=== PATIENT | female | born 2000 | race Caucasian/White ===

== ENCOUNTER 2023-04-13 21:21 | Emergency (ER) | payer OTHER, MEDICAID ==
[~2023-04-13] VITALS: Ht 170.2 cm; Wt 103.8 kg
[2023-04-13 21:48] VITALS: BP 125/69; PULSE 96; RESP 16; TEMP 99.3; O2SAT 98
[2023-04-13] MEDS ORDERED: phenylephrine/cocoa butter (Preparation H) suppository RC PRN (23:40)
[2023-04-13] MEDS ORDERED: PHEN1SUP96 PR (23:42)
[2023-04-13] MEDS ORDERED: OXYC-145 PO (23:42)
[2023-04-13] MEDS ORDERED: oxyCODONE/APAP 5-325mg tablet PO ONE (23:45)
[2023-04-13] MEDS ORDERED: hydrocortisone acetate 25mg rectal suppository RC ONE ×2 (23:50)
== END 2023-04-14 00:11 | disposition home or self-care (01) ==
LOC: ER 21:23
DX: K62.89 Other specified diseases of anus and rectum (principal); K64.1 Second degree hemorrhoids; Z79.899 Other long term (current) drug therapy
CPT/HCPCS: 99283

== ENCOUNTER 2023-04-30 23:01 | Emergency (ER) | payer OTHER, MEDICAID ==
[~2023-04-30] VITALS: Ht 170.2 cm; Wt 108.2 kg
[~2023-04-30 23:01] MED LIST: OXYC-145 PO; PHEN1SUP96 PR
[2023-05-01] LABS: BILIRUBIN,URINE NEGATIVE (Neg); CLARITY,URINE SLIGHTLY CLOUDY (Clear); COLOR,URINE YELLOW (Yellow); GLUCOSE, URINE 100 mg/dl (Neg); KETONES,URINE NEGATIVE (Neg); LEUKOCYTE ESTERASE ,URINE NEGATIVE (Neg); NITRITES, URINE NEGATIVE (Neg); OCCULT BLOOD,URINE NEGATIVE (Neg); PROTEIN,URINE NEGATIVE (Neg); UROBILINOGEN,URINE 0.2 E.U/dL (0.2-1.0)
[2023-05-01 00:01] LABS: BASOPHILS # (AUTO) 0.1 X10'3 (0-0.2); BASOPHILS % (AUTO) 1.9 % (0-1); EOSINOPHILS # (AUTO) 0.1 X10'3 (0-0.9); EOSINOPHILS % (AUTO) 0.7 % (0-6); HEMATOCRIT 41.8 % (35.0-45.0); HEMOGLOBIN 14.5 g/dl (12.0-16.0); LYMPHOCYTES # (AUTO) 1.8 X10'3 (1.1-4.8); LYMPHOCYTES % (AUTO) 23.3 % (21-51); MEAN CORPUSCULAR HEMOGLOBIN 32.2 PG (27.0-31.0); MEAN CORPUSCULAR HGB CONC 34.6 g/dL (33.0-36.5); MEAN CORPUSCULAR VOLUME 93.2 FL (78-98); MEAN PLATELET VOLUME 7.1 FL (7.4-10.4); MONOCYTES # (AUTO) 0.4 X10'3 (0-0.9); MONOCYTES % (AUTO) 4.8 % (2-12); NEUTROPHILS # (AUTO) 5.5 X10'3 (1.8-7.7); NEUTROPHILS % (AUTO) 69.3 % (42-75); PLATELET COUNT 278 X10'3 (140-440); RED BLOOD COUNT 4.49 X10'6 (4.20-5.60); RED CELL DISTRIBUTION WIDTH 12.9 % (11.5-14.5); WHITE BLOOD COUNT 7.9 X10'3 (4.5-11.0)
[2023-05-01 00:01] LABS: URINE HCG NEGATIVE (NEG)
[2023-05-01 00:11] LABS: ALANINE AMINOTRANSFERASE 45 U/L (12-78); ALBUMIN 3.7 G/DL (3.4-5.0); ALBUMIN/GLOBULIN RATIO 0.9 (1.1-1.5); ALKALINE PHOSPHATASE 84 IU/L (20-180); ANION GAP 9 (8-16); ASPARTATE AMINO TRANSFERASE 26 U/L (10-37); BILIRUBIN,TOTAL 0.2 MG/DL (0.1-1.0); BLOOD UREA NITROGEN 9 MG/DL (7-18); BUN/CREATININE RATIO 10.3 (10.0-20.0); CALCIUM 8.9 MG/DL (8.5-10.1); CHLORIDE 103 MMOL/L (99-107); CREATININE 0.87 MG/DL (0.40-0.90); GLUCOSE 205 MG/DL (70-104); LIPASE 38 U/L (16-77); POTASSIUM 4.1 MMOL/L (3.5-5.1); SODIUM 139 MMOL/L (135-145); TOTAL CARBON DIOXIDE 26.7 MMOL/L (24-32); eCRCL 100 ML/MIN; eGFR 83 ML/MIN
[2023-05-01 00:12] LABS: UA COLLECTION TYPE CLN CATCH MIDSTREAM
[2023-05-01 00:13] LABS: BACTERIA,URINE 2+ /HPF (Neg); RBC,URINE 0-2 /HPF (0-2); WBC,URINE 0-4 /HPF (0-4)
[2023-05-01 00:14] LABS: AMORPHOUS PHOSPHATES 1+; MUCUS STRANDS FEW /LPF (Neg); RENAL CELLS, URINE FEW /HPF; SQUAMOUS EPITHELIAL CELL,UR FEW /LPF (FEW)
[2023-05-01 04:40] VITALS: BP 128/63; PULSE 95; RESP 18; TEMP 98.2; O2SAT 98
== END 2023-05-01 04:42 | disposition home or self-care (01) ==
LOC: ER 23:02
DX: R10.32 Left lower quadrant pain (principal)
CPT/HCPCS: 36415; 80053; 81001; 81003; 81025; 83690; 85025; 99283

== ENCOUNTER 2023-05-11 14:42 | Emergency (ER) | payer OTHER, MEDICAID ==
[~2023-05-11] VITALS: Ht 170.2 cm; Wt 105.9 kg
[2023-05-11 18:05] LABS: BILIRUBIN,URINE NEGATIVE (Neg); CLARITY,URINE CLOUDY (Clear); COLOR,URINE YELLOW (Yellow); GLUCOSE, URINE NEGATIVE (Neg); KETONES,URINE NEGATIVE (Neg); LEUKOCYTE ESTERASE ,URINE NEGATIVE (Neg); NITRITES, URINE NEGATIVE (Neg); OCCULT BLOOD,URINE MODERATE (Neg); PROTEIN,URINE NEGATIVE (Neg); UA COLLECTION TYPE NON-SPECIFIED; UROBILINOGEN,URINE 0.2 E.U/dL (0.2-1.0)
[2023-05-11 18:06] LABS: URINE HCG NEGATIVE (NEG)
[2023-05-11 18:08] LABS: MEAN PLATELET VOLUME 6.9 FL (7.4-10.4)
[2023-05-11 18:09] LABS: BASOPHILS % (AUTO) 0.3 % (0-1); EOSINOPHILS % (AUTO) 0.4 % (0-6); HEMATOCRIT 45.1 % (35.0-45.0); HEMOGLOBIN 15.5 g/dl (12.0-16.0); LYMPHOCYTES # (AUTO) 1.7 X10'3 (1.1-4.8); LYMPHOCYTES % (AUTO) 21.4 % (21-51); MEAN CORPUSCULAR HEMOGLOBIN 32.3 PG (27.0-31.0); MEAN CORPUSCULAR HGB CONC 34.5 g/dL (33.0-36.5); MEAN CORPUSCULAR VOLUME 93.7 FL (78-98); MONOCYTES # (AUTO) 0.6 X10'3 (0-0.9); MONOCYTES % (AUTO) 7.1 % (2-12); NEUTROPHILS # (AUTO) 5.8 X10'3 (1.8-7.7); NEUTROPHILS % (AUTO) 70.8 % (42-75); PLATELET COUNT 307 X10'3 (140-440); RED BLOOD COUNT 4.81 X10'6 (4.20-5.60); RED CELL DISTRIBUTION WIDTH 12.9 % (11.5-14.5); WHITE BLOOD COUNT 8.1 X10'3 (4.5-11.0)
[2023-05-11 18:10] LABS: BACTERIA,URINE 2+ /HPF (Neg); MUCUS STRANDS FEW /LPF (Neg); SQUAMOUS EPITHELIAL CELL,UR FEW /LPF (FEW); WBC,URINE 0-4 /HPF (0-4)
[2023-05-11] MEDS ORDERED: iohexol 300mg/ml 100ml inj. ONE (19:00)
[2023-05-11 19:03] LABS: ALANINE AMINOTRANSFERASE 40 U/L (12-78); ALBUMIN 4.2 G/DL (3.4-5.0); ALBUMIN/GLOBULIN RATIO 1.1 (1.1-1.5); ALKALINE PHOSPHATASE 90 IU/L (20-180); ANION GAP 7 (8-16); ASPARTATE AMINO TRANSFERASE 23 U/L (10-37); BILIRUBIN,TOTAL 0.4 MG/DL (0.1-1.0); BLOOD UREA NITROGEN 12 MG/DL (7-18); CALCIUM 9.5 MG/DL (8.5-10.1); CHLORIDE 104 MMOL/L (99-107); CREATININE 0.86 MG/DL (0.40-0.90); GLUCOSE 88 MG/DL (70-104); POTASSIUM 4.2 MMOL/L (3.5-5.1); SODIUM 138 MMOL/L (135-145); TOTAL CARBON DIOXIDE 26.7 MMOL/L (24-32); eCRCL 101 ML/MIN; eGFR 84 ML/MIN
[2023-05-11] MEDS ORDERED: NAPR-56 PO (20:37)
[2023-05-11 21:05] VITALS: BP 128/73; PULSE 90; RESP 16; TEMP 98.3; O2SAT 99
== END 2023-05-11 21:08 | disposition home or self-care (01) ==
LOC: ER 14:43
DX: I88.0 Nonspecific mesenteric lymphadenitis (principal); R10.30 Lower abdominal pain, unspecified; Z79.899 Other long term (current) drug therapy
CPT/HCPCS: 36415; 74177; 76856; 80053; 81001; 81025; 85025; 93976; 99285; J3490; Q9967